=== PATIENT | female | born 1990 | race Caucasian/White ===

== ENCOUNTER 2018-11-30 17:19 | Day surgery (SDC) | payer OTHER ==
[2018-11-30 17:47] VITALS: BMI 32.7
[2018-11-30] MEDS ORDERED: Ondansetron PF 4 MG/2 ML Vial ONE (18:33)
[2018-11-30] MEDS ORDERED: hydrALAZINE 20 MG/ML VIAL SLOW IVP PRN (18:38)
[2018-11-30] MEDS ORDERED: Acetaminophen 500 MG TAB PO SCH (18:45)
[2018-11-30] MEDS ORDERED: Lactated Ringer's 1,000 ML IV SCH ×2 (18:45)
[2018-11-30] MEDS ORDERED: Ondansetron PF 4 MG/2 ML Vial IVP SCH (19:00)
[2018-11-30] MEDS ORDERED: Acetaminophen 1,000 MG in Premix Bag 1 BAG IVPB SCH (19:00)
--- NOTE | 2018-11-30 22:35 | ER ---
DATE OF SERVICE: 11/30/2018 PRIMARY OB: Claudia Castañeda DO. CHIEF COMPLAINT: Nausea and vomiting. HISTORY OF PRESENT ILLNESS: The patient is a 28-year-old G1, P0 female with an intrauterine at 30 weeks gestation, who is presenting with a 1-day history of nausea and vomiting. She reports she started feeling bad about 6 o'clock yesterday after eating and has progressively gotten worse. She reports she has vomited about 3 times today. In addition, patient has also started having fever. After talking to her PHARMACY TECH CUSTOMER SERVICE's office, she was recommended to come in for evaluation. The patient reports that she still is urinating, which she believes is fairly normal. She reports her vomit as being small volume, but frequent. The patient denies any diarrhea. She denies any known sick contacts. The patient denies uterine contractions or vaginal bleeding. She denies chest pain or shortness of breath. She denies any diarrhea. She has had a little bit of constipation that she attributes to her iron. Denies any new rashes, hip problems, knee problems, muscle weakness, vaginal bleeding or leakage of fluid or urinary urgency. PAST MEDICAL HISTORY: Negative. PAST SURGICAL HISTORY: She has had ear tubes as a child. ALLERGIES: NO KNOWN DRUG ALLERGIES. MEDICATIONS: vitamins and iron. SOCIAL HISTORY: Denies drug, alcohol, or tobacco use. OB LABS: Unavailable at the time of dictation. REVIEW OF SYSTEMS: Per HPI. PHYSICAL EXAMINATION: VITAL SIGNS: Blood pressure 145/72, heart rate of 135, respiratory rate of 20, saturating 98% on room air, temperature 101.1. Over the course of her stay, patient's pulse came down into the 90s and blood pressure of 111/60, saturating 97% on room air. GENERAL: She appears to be in no acute distress. She is alert, oriented, cooperative, and pleasant to interact with. Face is flushed. LUNGS: Clear to auscultation bilaterally. HEART: Regular rhythm and is tachycardic on initial exam. ABDOMEN: Gravid and soft. She has no CVA tenderness. No vertebral tenderness. No abdominal or uterine tenderness. EXTREMITIES: Nontender, nonedematous. heart tracing performed for nausea and vomiting in shows a fetus with a baseline in the 140s with moderate long-term variability, positive 15 x 15 accelerations. Tocometer showing some irritability, but not really felt by the patient. ASSESSMENT AND PLAN: The patient received 2 L of IV hydration, 1 g of IV Tylenol as the patient did not tolerate p.o. initially. The patient did vomit on 2 occasions on initial presentation. However, after a dose of Zofran and IV hydration, the patient has felt much better and tolerated p.o. including applesauce and Jell-O and liquid. ASSESSMENT AND PLAN: The patient is a 28-year-old female with an intrauterine at 30 weeks, who likely has some viral syndrome. The patient has no evidence of concerns of a kidney infection on clinical exam. She has been hydrated well with 2 L and given a course of Zofran allowing her to tolerate p.o. The patient has been encouraged to go home and continue with p.o. hydration and to contact her doctor's office on Monday if she is not feeling better and to come back to the hospital if she is worsening. The patient has been given a prescription for Zofran 4 mg to be taken every 4 hours as needed for nausea or vomiting, #10. Fetus has a category 1 tracing and reactive NST. Job ID: [id number]
== END 2018-11-30 20:51 | disposition home or self-care (01) ==
LOC: L&D/OP 17:19
PROVIDERS: ATTEND Obstetrics & Gynecology
DX: O21.2 Late vomiting of pregnancy (principal); Z3A.30 30 weeks gestation of pregnancy; Z79.899 Other long term (current) drug therapy
CPT/HCPCS: 96360; 96361; 96375; 99283; J0131; J2405

== ENCOUNTER 2018-12-03 19:52 | Inpatient (IN) | payer OTHER ==
[2018-12-03 20:29] VITALS: BMI 32.1
[2018-12-03] MEDS ORDERED: Ondansetron PF 4 MG/2 ML Vial IVP PRN (21:01)
[2018-12-03] MEDS ORDERED: Ondansetron ODT 4 MG TAB PO PRN (21:01)
[2018-12-03] MEDS: Acetaminophen 1,000 MG in Premix Bag 1 BAG IVPB PRN (21:18)
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
[2018-12-03] MEDS: cefTRIAXone\\ROCEPHIN 1 GM in Sodium Chloride 0.9% 100 ML IVPB SCH (21:19)
[2018-12-03 21:37] LABS: Hemoglobin 9.3 g/dL (12.0-16.0); Mean Corpuscular HGB CONC 31.3 g/dL (32.0-36.0); Mean Corpuscular Hemoglobin 27.9 pg (27.0-31.0); Mean Platelet Volume 9.3 fL (7.4-10.4); Platelet Count 240 thou/uL (130-400); RBC Distribution Width 14.7 % (11.5-14.5); Red Blood Cell (RBC) Count 3.34 mill/uL (4.20-5.40); White Blood Cell (WBC) Count 18.6 thou/uL (4.8-10.8)
[2018-12-03 21:55] LABS: Band 10 % (5-11); Hypochromia SLIGHT = 6-15 cells (100X) (0-5/hpf); Lymphocytes 1 % (21-51); MDiff Complete? YES; Monocytes 5 % (0-10); Neutrophil 84 % (42-75); Platelet Morphology Comment Appears Adequate
[2018-12-03 22:08] LABS: ALT (SGPT) 17 U/L (8-55); AST (SGOT) 13 U/L (5-34); Albumin 2.8 g/dL (3.5-5.0); Alkaline Phosphatase 121 U/L (40-150); Anion Gap 15 mmol/L (10-20); BUN (Urea Nitrogen) 9 mg/dL (7.0-18.7); Bilirubin, Total 0.2 mg/dL (0.2-1.2); Calc. Creatinine Clearance 143 mL/min (70-130); Calcium 8.8 mg/dL (7.8-10.44); Carbon Dioxide 19 mmol/L (22-29); Chloride 102 mmol/L (98-107); Estimated GFR-MDRD Greater than 90; Globulin 4.2 g/dL (2.4-3.5); Glucose 84 mg/dL (70-105); Potassium 3.1 mmol/L (3.5-5.1); Sodium 133 mmol/L (136-145)
[2018-12-03] MEDS: Gentamicin Sulfate 80 MG in Premix Bag 1 BAG IVPB SCH (22:44)
[2018-12-04] MEDS: Famotidine 20 MG TAB PO SCH ×3 (00:27→20:52)
[2018-12-04] MEDS: Famotidine/PF 20 mg/2ml Vial SLOW IVP SCH ×3 (02:21→23:13)
[2018-12-04] MEDS: Sodium Chloride 0.9% 1,000 ML IV SCH ×3 (02:21→13:32)
[2018-12-04] MEDS: Gentamicin Sulfate 80 MG in Premix Bag 1 BAG IVPB SCH ×3 (06:10→21:44)
--- NOTE | 2018-12-04 07:06 | PRG ---
DATE OF SERVICE: 12/04/2018 TIME OF SERVICE: 0645 hours. SUBJECTIVE: The patient is resting comfortably. She states that she feels much better than yesterday and subjectively has not experienced any fevers. She reports an active fetus. OBJECTIVE: VITAL SIGNS: Temperature 97.6, T-max after transfer to the unit is 97.7, pulse 64, respirations 18, O2 saturations 98% on room air, blood pressure 98/56. FHTs are well 150s. LUNGS: Clear to auscultation bilaterally. HEART: Regular rate and rhythm. ABDOMEN: Soft, and nontender. No rebound or guarding. Mild discomfort to CVA percussion. EXTREMITIES: No clubbing, cyanosis, or edema. LABORATORY DATA: No new labs available at this time. IMPRESSION: Pyelonephritis at 30 weeks gestation complicated by significant febrile morbidity upon presentation. Urine culture at [facility] [place] revealed Klebsiella pneumoniae, sensitive to cephalosporins and gentamicin. PLAN: Continue gentamicin and Rocephin. Followup renal ultrasound report (images done yesterday). We will hand patient's care off to Dr. Duncan Parker, OB hospitalist on-call at 0800 hours today. Job ID: [id number]
[2018-12-04] MEDS: Acetaminophen 1,000 MG in Premix Bag 1 BAG IVPB PRN ×2 (07:26→20:51)
--- NOTE | 2018-12-04 07:36 | ULT ---
RENAL ULTRASOUND: CLINICAL HISTORY: Bilateral flank pain, patient. FINDINGS: There is mild dilatation of the right renal collecting system and moderate dilatation of the left eric al collecting system. The right renal length is 11.6 cm and the left renal length 12.2 cm. There is mild distention of the urinary bladder. Bilateral ureteral jets are elicited with proper imaging. IMPRESSION: 1. Bilateral hydronephrosis, left greater than right, as discussed above. 2. As clinically necessary, continued imaging followup may be obtained. POS: LISS
[2018-12-04] MEDS ORDERED: Potassium Chloride 20 MEQ TAB PO SCH ×2 (09:00→13:45)
[2018-12-04 12:03] LABS: #Lymphocytes 1.6 thou/uL (1.20-3.40); #Neutrophils 11.4 thou/uL (1.40-6.50); %Basophils 0.1 % (0.0-1.0); %Eosinophils 0.2 % (0.0-10.0); %Lymphocytes 11.6 % (21.0-51.0); %Monocytes 6.9 % (0.0-10.0); %Neutrophils 81.3 % (42.0-75.0); Hemoglobin 8.6 g/dL (12.0-16.0); Mean Corpuscular HGB CONC 32.4 g/dL (32.0-36.0); Mean Corpuscular Hemoglobin 28.5 pg (27.0-31.0); Mean Platelet Volume 8.5 fL (7.4-10.4); Platelet Count 228 thou/uL (130-400); RBC Distribution Width 14.6 % (11.5-14.5)
[2018-12-04] MEDS: NS 0.9% w/ 40 MEQ KCL 1,000 ML IV SCH (12:34)
[2018-12-04] MEDS ORDERED: Morphine 4 MG/ML VIAL SLOW IVP PRN (23:09)
[2018-12-04] MEDS: cefTRIAXone\\ROCEPHIN 1 GM in Sodium Chloride 0.9% 100 ML IVPB SCH (23:13)
[2018-12-05] MEDS: NS 0.9% w/ 40 MEQ KCL 1,000 ML IV SCH ×2 (01:46→12:05)
[2018-12-05] MEDS: Sodium Chloride 0.9% 1,000 ML IV SCH (05:45)
[2018-12-05] MEDS: Gentamicin Sulfate 80 MG in Premix Bag 1 BAG IVPB SCH ×2 (05:59→13:59)
[2018-12-05] MEDS ORDERED: Acetaminophen 500 MG TAB PO PRN (07:47)
[2018-12-05 08:31] LABS: #Eosinphils 0.1 thou/uL (0.0-0.7); #Lymphocytes 1.8 thou/uL (1.20-3.40); #Monocytes 0.6 thou/uL (0.11-0.59); %Basophils 0.4 % (0.0-1.0); %Eosinophils 0.6 % (0.0-10.0); %Lymphocytes 18.8 % (21.0-51.0); %Monocytes 6.3 % (0.0-10.0); %Neutrophils 73.8 % (42.0-75.0); Hemoglobin 8.7 g/dL (12.0-16.0); Mean Corpuscular HGB CONC 31.6 g/dL (32.0-36.0); Mean Corpuscular Hemoglobin 28.5 pg (27.0-31.0); Mean Corpuscular Volume 90.2 fL (78.0-98.0); Mean Platelet Volume 8.7 fL (7.4-10.4); Platelet Count 236 thou/uL (130-400); RBC Distribution Width 14.9 % (11.5-14.5); Red Blood Cell (RBC) Count 3.05 mill/uL (4.20-5.40); White Blood Cell (WBC) Count 9.5 thou/uL (4.8-10.8)
[2018-12-05] MEDS: Famotidine 20 MG TAB PO SCH (09:18)
[2018-12-05] MEDS: Famotidine/PF 20 mg/2ml Vial SLOW IVP SCH (09:18)
[2018-12-05 12:16] VITALS: TEMP 97.7
--- NOTE | 2018-12-05 13:05 | DIS ---
DATE OF ADMISSION: 12/03/2018 DATE OF DISCHARGE: 12/05/2018 DATE OF ANTICIPATED DISCHARGE: 12/05/2018. ADMITTING DIAGNOSES: 1. Intrauterine at 30 weeks. 2. Pyelonephritis. DISCHARGE DIAGNOSES: 1. Intrauterine at 30 weeks. 2. Pyelonephritis. PROCEDURES: None. CONSULTATIONS: None. HOSPITAL COURSE: The patient is a 28-year-old female, who presented to the emergency room with a temperature of 102.5 with signs and symptoms consistent with pyelonephritis. The patient was admitted for antibiotics and was started on Rocephin and gentamicin. Of note, the patient was seen earlier that day in clinic, where she was given a shot of what sounds like Rocephin with urine culture positive for Klebsiella pneumoniae. Second positive culture with this same bacteria in this . The patient's hospital course has been uncomplicated. She has remained afebrile here in the hospital for now about 36 hours. She has had some flank pain earlier and the course has been managed well with oral pain medications. The patient this morning reports that she is feeling well. She is tolerating p.o., voiding on her own, having good appetite. CBC has been ordered for today and is pending. Anticipate discharge later this afternoon. We do need to confirm what oral antibiotics this bacteria sensitive to. We will need to obtain urine culture results from clinic today. The patient has been counseled that she may like to go home this afternoon with these oral antibiotics and will subsequently need to be placed on suppressive antibiotic medication for the rest of the . She will need to follow up with her primary OB within the coming week. Job ID: [id number]
[2018-12-05 16:25] VITALS: BP 110/56
== END 2018-12-05 17:30 | disposition home or self-care (01) | DRG 833 ==
LOC: L&D/OP 19:52 → L&D 20:53 → 3SW 23:38
PROVIDERS: ADMIT Obstetrics & Gynecology; ATTEND Obstetrics & Gynecology
DX: O23.03 Infections of kidney in pregnancy, third trimester (principal); Z3A.30 30 weeks gestation of pregnancy; B96.1 Klebsiella pneumoniae [K. pneumoniae] as the cause of diseases classified elsewhere; Z16.19 Resistance to other specified beta lactam antibiotics; Z16.29 Resistance to other single specified antibiotic
CPT/HCPCS: 36415; 59025; 76770; 80053; 85025; J0131; J0696; J1580; J2270; J3480; J3490

== ENCOUNTER 2019-01-22 21:56 | Day surgery (SDC) | payer OTHER ==
[2019-01-22] MEDS ORDERED: hydrALAZINE 20 MG/ML VIAL SLOW IVP PRN (22:55)
[2019-01-22 23:15] VITALS: BMI 30.7
[2019-01-22 23:16] VITALS: BP 122/76; TEMP 98.5
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
== END 2019-01-23 02:00 | disposition home or self-care (01) ==
LOC: L&D/OP 21:56
PROVIDERS: ATTEND Obstetrics & Gynecology
DX: Z04.3 Encounter for examination and observation following other accident (principal); Z3A.37 37 weeks gestation of pregnancy; V43.52XA Car driver injured in collision with other type car in traffic accident, initial encounter; Z88.5 Allergy status to narcotic agent
CPT/HCPCS: 99282

== ENCOUNTER 2019-01-31 11:47 | Inpatient (IN) | payer OTHER ==
--- NOTE | 2019-01-31 14:10 | PDOC.LDHP ---
Labor and Delivery H&P Chief complaint: other HPI: 29 yo G1 @ 38w6d by 25 week sono who presents from clinic for BP evlaution. pt with mild range Bps 140s-150s/90s in clinic. Reports h/a. Denies any other sx. Her BPs have been normal - mild on evaluation. Pt had pyelonephritis during this , on suppression. Dating criteria: second trimester ultrasound Grav: 1 Para: 0 Current complications: gestational hypertension Abnormal US findings: No Past Medical History: Pyelonephritis earlier in Current medications: pre- vitamins, other (Keflex suppression) Allergies/Adverse Reactions: Allergies Allergy/AdvReac Type Severity Reaction Status Date / Time morphine Allergy Hives Verified 01/31/19 14:37 Social history: none - Physical Exam Abnormal vital signs: mild range BPs General: NAD Heart: RRR Lungs: nonlabored breathing Abdomen: gravid Extremeties: no edema FHT: category 1 [place] contractions every: irregular ctx - Vaginal Exam cm dilated: 2 Effacement: 75% Station: -1 - OB Labs Blood type: O RH: positive Antibody Screen: negative HIV: negative RPR: negative HEPSAg: negative 1 hour GCT: negative GBS: negative Urine drug screen: negative Rubella: non-immune - Assessment 38w6d IUP GHTN IOL - Plan Plan: admit to L&D, informed consent obtained, anesthesia consult for pain management -: PreE labs wnl Due to mild range BPs, admit for IOL due to IOL Monitor BPs.
[2019-01-31] MEDS: Lactated Ringer's 1,000 ML IV SCH ×2 (14:30→17:55)
[2019-01-31 14:55] LABS: Hemoglobin 9.6 g/dL (12.0-16.0); Mean Corpuscular HGB CONC 33.6 g/dL (32.0-36.0); Mean Corpuscular Hemoglobin 28.5 pg (27.0-31.0); Mean Corpuscular Volume 84.8 fL (78.0-98.0); Platelet Count 216 thou/uL (130-400); RBC Distribution Width 15.9 % (11.5-14.5); Red Blood Cell (RBC) Count 3.36 mill/uL (4.20-5.40); White Blood Cell (WBC) Count 13.3 thou/uL (4.8-10.8)
[2019-01-31 15:14] LABS: ALT (SGPT) 11 U/L (8-55); AST (SGOT) 19 U/L (5-34); Albumin 3.2 g/dL (3.5-5.0); Alkaline Phosphatase 155 U/L (40-150); Anion Gap 11 mmol/L (10-20); BUN (Urea Nitrogen) 10 mg/dL (7.0-18.7); Bilirubin, Total Less than 0.2 mg/dL (0.2-1.2); Calc. Creatinine Clearance 0 mL/min (70-130); Calcium 8.8 mg/dL (7.8-10.44); Carbon Dioxide 22 mmol/L (22-29); Chloride 106 mmol/L (98-107); Estimated GFR-MDRD 89; Globulin 3.7 g/dL (2.4-3.5); Glucose 86 mg/dL (70-105); Potassium 3.8 mmol/L (3.5-5.1); Protein, Total 6.9 g/dL (6.0-8.3); Sodium 135 mmol/L (136-145); Uric Acid 5.2 mg/dL (2.6-6.0)
[2019-01-31 15:29] LABS: Creatinine, Urine 54.58 mg/dL (47-110); Protein, Urine Random Quant Less than 10 mg/dL (1-14)
[2019-01-31] MEDS ORDERED: NS / Oxytocin 40 units/1000ml 1,000 ML IV PRN (16:45)
[2019-01-31] MEDS ORDERED: Ibuprofen 800 MG TAB PO PRN (16:45)
[2019-01-31] MEDS ORDERED: Promethazine HCl 25 MG/ML VIAL IM PRN (16:45)
[2019-01-31] MEDS ORDERED: Misoprostol 200 MCG TAB PR PRN (16:45)
[2019-01-31] MEDS ORDERED: hydrALAZINE 20 MG/ML VIAL SLOW IVP PRN (16:45)
[2019-01-31] MEDS ORDERED: Carboprost 250 MCG/ML AMP IM PRN (16:45)
[2019-01-31] MEDS ORDERED: Ondansetron PF 4 MG/2 ML Vial IVP PRN (16:45)
[2019-01-31] MEDS ORDERED: Lidocaine 1% (PF) 30 ML VIAL SC PRN (16:45)
[2019-01-31] MEDS ORDERED: Acetaminophen 500 MG TAB PO PRN (16:45)
[2019-01-31] MEDS ORDERED: Diphenoxylate HCl/Atropine Tablet PO PRN (16:45)
[2019-01-31 17:49] LABS: Syphilis Antibody Nonreactive (Nonreactive); Syphilis Antibody Index 0.08 S/CO (<1.00 Non-Reactive)
[2019-01-31 17:50] LABS: HBSAg Index 0.18 S/CO (0-0.99); HIV (1/2) Antibody/Antigen Non-Reactive (NonReactive); HIV 1/2 INDEX 0.12 S/CO (<1.00); Hep B Surf Ag Non-Reactive S/CO (NonReactive)
[2019-01-31 17:53] VITALS: BMI 35.4
[2019-01-31] MEDS: NS w/ Oxytocin 10 units 500 ML IV SCH (17:55)
[2019-02-01] MEDS ORDERED: Butorphanol Tartrate 1 MG/ML VIAL ONE (01:32)
[2019-02-01] MEDS ORDERED: NS / Oxytocin 40 units/1000ml 1,000 ML ONE (06:54)
[2019-02-01] MEDS ORDERED: Lidocaine 1% (PF) 30 ML VIAL ONE (06:54)
[2019-02-01] MEDS: Lactated Ringer's 1,000 ML IV SCH (07:52)
--- NOTE | 2019-02-01 07:55 | PDOC.LDPN ---
Labor & Delivery Progress Note - Subjective Subjective: painful contractions - Objective Abnormal vital signs: one severe range BP with pain this morning, all others normal or mild General: breathing through contractions Uterine fundus: non tender Dilation: 9 Effacement: 100% Station: 1+ FHT: category 1 [place] contractions every: q2 min per pt report ctx AROM: clear fluid - Assessment (1) 39 weeks gestation of Code(s): Z3A.39 - 39 WEEKS GESTATION OF Current Visit: Yes Status : Acute (2) Gestational hypertension Code(s): O13.9 - GESTATIONAL HTN W/O SIGNIFICANT PROTEINURIA, UNSP TRIMESTER Current Visit: Yes Status: Acute (3) Encounter for induction of labor Code(s): Z34.90 - ENCNTR FOR SUPRVSN OF NORMAL , UNSP, UNSP TRIMESTER Current Visit: Yes Status: Acute Plan: continue plan of care, pitocin for augmentation
--- NOTE | 2019-02-01 11:14 | PDOC.OPDEL ---
OB Operative/Delivery Note Delivery Dr/Surgeon: Claudia Castañeda DO Pre-Delivery Diagnosis: medically indicated induction Procedure/Post Delivery Dx: spontaneous vaginal delivery Weeks gestation: 39 Anesthesia: none - Findings A Sex: female - 1 min: 8 - 5 min: 9 - Additional Findings/Plan Placenta delivered: spontaneous Repaired Obstetrical Laceration: 2nd degree Estimated blood loss: QBL 142 cc Compilations/Other Findings: in OA position [place] appearing placenta Initial atony noted, resolved with drainage of 300 cc urine. Post delivery plan: routine recovery
[2019-02-01] MEDS ORDERED: Measles/Mumps/Rubella 10 MCG/0.5 ML VIAL SC ONE (15:24)
[2019-02-01] MEDS ORDERED: Benzocaine-Menthol 82.5 ML CAN TOP PRN (15:24)
[2019-02-01] MEDS ORDERED: Milk Of Magnesia 30 ML UDCUP PO PRN (15:24)
[2019-02-01] MEDS ORDERED: Preparation H Ointment 28 GM TUBE PR PRN (15:24)
[2019-02-01] MEDS ORDERED: Bisacodyl 10 MG SUPP PR PRN (15:24)
[2019-02-01] MEDS ORDERED: Lanolin Ointment 7 GM TUBE TOP PRN (15:24)
[2019-02-01] MEDS ORDERED: NS / Oxytocin 40 units/1000ml 1,000 ML IV SCH (15:24)
[2019-02-01] MEDS ORDERED: diphenhydrAMINE 25 MG CAP PO PRN (15:24)
[2019-02-01] MEDS ORDERED: hydrALAZINE 20 MG/ML VIAL SLOW IVP PRN (15:24)
[2019-02-01] MEDS: Ferrous Sulfate 325 MG TAB PO SCH (16:42)
[2019-02-01] MEDS: Ibuprofen 800 MG TAB PO SCH (16:43)
[2019-02-01] MEDS: NS w/ Oxytocin 10 units 500 ML IV SCH (17:16)
[2019-02-01] MEDS: Docusate Calcium (SURFAK) 240 MG CAP PO SCH (21:40)
[2019-02-02] MEDS: Ibuprofen 800 MG TAB PO SCH ×4 (01:04→21:25)
[2019-02-02 06:18] LABS: Hemoglobin 7.3 g/dL (12.0-16.0); Mean Corpuscular Hemoglobin 28.3 pg (27.0-31.0); Mean Corpuscular Volume 85.8 fL (78.0-98.0); Mean Platelet Volume 9.9 fL (7.4-10.4); Platelet Count 179 thou/uL (130-400); Red Blood Cell (RBC) Count 2.56 mill/uL (4.20-5.40); White Blood Cell (WBC) Count 13.8 thou/uL (4.8-10.8)
--- NOTE | 2019-02-02 08:05 | PRG ---
DATE OF SERVICE: 02/02/2019 SUBJECTIVE: The patient is a 29-year-old, G1, now P1 female, day 1, status post a term spontaneous vaginal delivery complicated by some atony and by chronic anemia. The patient this morning reports that she is eating, tolerating p.o., voiding on her own. She denies dizziness or lightheadedness or excessive weakness. OBJECTIVE: VITAL SIGNS: This morning, blood pressure 113/64, temperature 98.2, pulse IS 79, respiratory rate of 16. GENERAL: She appears to be in no acute distress. She is alert and oriented, cooperative and pleasant to interact with. ABDOMEN: Fundus is firm at the umbilicus. EXTREMITIES: Nontender. Nonedematous. LABORATORY DATA: Her hemoglobin this morning is 7.3, hematocrit 22.0, platelets 179,000 down from 9.6, 28.5, and 216,000. ASSESSMENT AND PLAN: The patient is day 1, status post term spontaneous vaginal delivery. The patient has no symptoms at this point with her acute on chronic anemia. The patient has been counseled to contact us if she is having symptoms today as she is ambulating and moving about. She has also been counseled on her iron supplementation. Job ID: [id number]
[2019-02-02] MEDS: Docusate Calcium (SURFAK) 240 MG CAP PO SCH ×2 (08:52→21:26)
[2019-02-02] MEDS: Prenatal Vitamin 1 TAB PO SCH (08:52)
[2019-02-02] MEDS: Ferrous Sulfate 325 MG TAB PO SCH ×2 (08:53→17:06)
[2019-02-02] MEDS: NS w/ Oxytocin 10 units 500 ML IV SCH (17:02)
[2019-02-03] MEDS: Ibuprofen 800 MG TAB PO SCH ×2 (05:40→13:46)
--- NOTE | 2019-02-03 07:02 | PDOC.PP ---
Post Progress Note Post Day #: 2 PO intake tolerated: yes Flatus: yes Ambulation: yes Vital Signs (12 hours) Temp Pulse Resp BP Pulse Ox 02/03/19 04:00 97.7 F 97 18 116/66 98 02/03/19 00:05 97.8 F 93 20 120/58 L 96 02/02/19 20:02 96 02/02/19 20:00 98.1 F 89 20 113/55 L 96 Weight Weight 200 lb - Physical Examination General: NAD Cardiovascular: no m/r/g, RRR Respiratory: clear to auscultation bilaterally, non-labored breathing Abdominal: + bowel sounds, lochia Extremities: negative homans (B) Neurological: no gross focal deficits Psychiatric: A&Ox3, normal affect (doing well dc home) Result Diagrams: 02/02/19 05:58 01/31/19 14:38 Additional Labs: Post Labs Blood Type O POSITIVE 01/31/19 17:35 Hep Bs Antigen Non-Reactive S/CO (NonReactive) 01/31/19 16:58
[2019-02-03 08:52] VITALS: BP 116/68; TEMP 97.8
[2019-02-03] MEDS: Ferrous Sulfate 325 MG TAB PO SCH (10:10)
[2019-02-03] MEDS: Docusate Calcium (SURFAK) 240 MG CAP PO SCH (10:10)
[2019-02-03] MEDS: Prenatal Vitamin 1 TAB PO SCH (10:10)
[2019-02-04] MEDS ORDERED: Measles/Mumps/Rubella 10 MCG/0.5 ML VIAL SC ONE (09:00)
== END 2019-02-03 17:20 | disposition home or self-care (01) | DRG 807 ==
LOC: L&D 11:47 → 3SW 02-01 15:46
PROVIDERS: ADMIT Obstetrics & Gynecology; ATTEND Obstetrics & Gynecology
PROC: 10E0XZZ Delivery of Products of Conception, External Approach (ICD-10-PCS; principal; 2019-02-01)
PROC: 0KQM0ZZ Repair Perineum Muscle, Open Approach (ICD-10-PCS; 2019-02-01)
PROC: 10907ZC Drainage of Amniotic Fluid, Therapeutic from Products of Conception, Via Natural or Artificial Opening (ICD-10-PCS; 2019-02-01)
PROC: 3E033VJ Introduction of Other Hormone into Peripheral Vein, Percutaneous Approach (ICD-10-PCS; 2019-02-01)
DX: O13.4 Gestational [pregnancy-induced] hypertension without significant proteinuria, complicating childbirth (principal); Z37.0 Single live birth; Z3A.39 39 weeks gestation of pregnancy; O70.1 Second degree perineal laceration during delivery
CPT/HCPCS: 36415; 80053; 82570; 84156; 84550; 85027; 86780; 86850; 86900; 86901; 87340; 87389; 90707; J0595; J2001; J2405; J2590